=== PATIENT | female | born 1965 | race Caucasian/White ===

== ENCOUNTER 2016-09-21 21:20 | Emergency (ER) | payer MEDICARE ==
[~2016-09-21] VITALS: Ht 167.6 cm; Wt 62.0 kg
[2016-09-21 21:20] VITALS: BP 114/75; PULSE 72; RESP 16; TEMP 97.9; O2SAT 100
--- NOTE | 2016-09-21 21:47 | PD ---
HPI Chief Complaint: Back/ Neck Pain or Injury Time Seen by Provider: 21:36 Travel History International Travel<30 days: No Contact w/Intl Traveler<30days: No Traveled to known affect area: No History of Present Illness HPI 50 year-old female with a history of chronic back pain and several back surgeries presents to the emergency room via ambulance for evaluation of right- sided thoracic back pain since this morning. Patient states she was exiting the shower and upon turning/reaching for her towel, felt sharp severe pain in the right thoracic area. She denies lower extremity paresthesias, saddle anesthesia, or loss of bowel or bladder control. Patient has chronic upper extremity paresthesias from her neck surgery but states it is not worse than normal. Pain is worsened with any range of motion of the back and deep inspiration. It is constant dull ache with occasional sharp stabbing sensation. Severe, 10/10. She took her prescribed Lortab 10/325 and 6 muscle relaxers today without relief in symptoms. Patient reports she'll get a flare of back pain every 3 months but has never been this severe. She tried to " tough it out" but after being in pain all day, decided to come to the emergency room. When she attempted to get out of bed to drive herself, she was unable to so she called the ambulance. [facility] Social History Tobacco Use: No Allergies-Medications (Allergen,Severity, Reaction): Coded Allergies: Doxycycline (Verified Allergy, Intermediate, Skin Discoloration, 09/21/16) Reported Meds & Prescriptions Reported Meds & Active Scripts Active Prednisone 20 Mg Tab 40 Mg PO DAILY 5 Days Review of Systems Except as stated in HPI: all other systems reviewed are Neg Physical Exam Narrative GENERAL: Well-nourished, well-developed female in no acute distress. Afebrile. Ambulatory. SKIN: Warm and dry. HEAD: Normocephalic. EYES: No scleral icterus. No injection or drainage. NECK: Supple, trachea midline. No JVD or lymphadenopathy. MUSCULOSKELETAL: No cyanosis, or edema. BACK: No significant tenderness to palpation of the right thoracic musculature. No midline tenderness or obvious deformity. No CVA tenderness. Data Data Last Documented VS Vital Signs Date Time Temp Pulse Resp B/P Pulse Ox O2 Delivery O2 Flow Rate FiO2 09/21/16 21:20 97.9 72 16 114/75 100 Orders Dexamethasone Inj (Decadron Inj) (09/21/16 22:00) Ketorolac Inj (Toradol Inj) (09/21/16 22:00) [facility] Medical Decision Making Medical Screen Exam Complete: Yes Emergency Medical Condition: Yes Medical Record Reviewed: Yes Differential Diagnosis fracture versus spasm versus strain versus sprain Narrative Course 50-year-old female presents to the emergency room for evaluation of acute on chronic back pain. Patient has history of multiple back surgeries and bulging discs and gets flares every 3-4 months but has not had one this painful before. States pain significantly increased after twisting/reaching for a towel earlier today. No other injuries. No focal neurological deficits. No midline tenderness. No indication for emergent imaging at this time. Pain is localized to the tenderness to palpation of the right thoracic musculature but there is no significant tenderness to palpation. Patient's has already take Lortab 10 and prescribed muscle relaxers prior to arrival. Therefore she'll be given Toradol and Decadron in the emergency room. She reports moderate improvement in symptoms after medications. Discharged with prescription for prednisone and told to follow up with a primary care physician or return to the emergency room for worsening symptoms. She understands and agrees to plan. Diagnosis Primary Impression: Acute thoracic back pain Qualified Code: M54.6 - Acute right-sided thoracic back pain Referrals: Pain Management Primary Care Physician Patient Instructions: General Instructions, Thoracic Back Strain (ED) Additional Instructions: Rest and drink plenty of fluids. Take prescribed medications as directed, as needed for pain. Take ibuprofen with food as directed, as needed for pain. Apply ice to the affected area for 20 minutes at a time, as needed for pain and swelling. Follow-up with a primary care physician and pain management. Return to the emergency room for worsening symptoms. Scripts Prednisone 20 Mg Tab40 Mg PO DAILY 5 Days Ref 0 Prov:Daniel Burgos MD 09/21/16 Disposition: 01 DISCHARGE HOME Condition: Stable Mela Santana Sep 21, 2016 21:47 Condition: Stable Mela Santana Sep 21, 2016 21:47
[2016-09-21] MEDS ORDERED: DEXAMETHASONE SOD PHOS 4 MG/ML VIAL IM ONE (22:00)
[2016-09-21] MEDS ORDERED: KETOROLAC TROMETHAMINE 60 MG/2 ML (IM) VIAL IM ONE (22:00)
[2016-09-21] MEDS ORDERED: PRED20 PO (22:16)
== END 2016-09-21 22:43 | disposition home or self-care (01) ==
LOC: PHEFT 21:20
DX: M54.6 Pain in thoracic spine (principal)
CPT/HCPCS: 96372; 99283; J1100; J1885

== ENCOUNTER 2016-10-27 10:08 | Observation (INO) | payer MEDICARE ==
[~2016-10-27] VITALS: Ht 167.6 cm; Wt 67.9 kg
[~2016-10-27 10:08] MED LIST: PRED20 PO
[2016-10-27] MEDS ORDERED: SODIUM CHLOR 0.9% 1000 ML INJ 1,000 ML IV SCH (10:10)
[2016-10-27] MEDS ORDERED: ONDANSETRON HCL 4 MG/2 ML VIAL IVP ONE (10:15)
[2016-10-27] MEDS ORDERED: HYDROmorphone HCL PF 1 MG/ML VIAL IVS ONE (10:15)
[2016-10-27 10:20] VITALS: BP 146/88; PULSE 59; RESP 16; TEMP 97.6; O2SAT 100
[2016-10-27] MEDS: SODIUM CHLORIDE 0.9% FLUSH 5 ML FLUSH IVF PRN ×2 (10:28→11:35)
[2016-10-27] MEDS ORDERED: MACR100C2 PO (10:35)
[2016-10-27] MEDS ORDERED: HYDR-3533 PO (10:35)
[2016-10-27] MEDS ORDERED: ROBA750T PO (10:35)
--- NOTE | 2016-10-27 10:44 | PD ---
HPI Chief Complaint: Flank/Kidney Pain Time Seen by Provider: 10:10 Travel History International Travel<30 days: No Contact w/Intl Traveler<30days: No Traveled to known affect area: No History of Present Illness HPI This is a 51-year-old female who presents to the emergency department with sudden onset right lower quadrant abdominal pain, severe, constant, worse with movement, associated with multiple episodes of vomiting. Patient has never had pain like this before. It woke her up from sleep at 9 AM. She last had her menstrual cycle a week and a half ago. She denies any back pain. She denies any diarrhea or constipation. She's not had any vaginal discharge. Patient has a history of a cholecystectomy. She is on Lortab for chronic back pain. PFSH Past Medical History ?: Not LMP: 10/10/16 Tubal Ligation: Yes Past Surgical History Cholecystectomy: Yes Social History Alcohol Use: No Tobacco Use: No Substance Use: No Allergies-Medications (Allergen,Severity, Reaction): Coded Allergies: Doxycycline (Verified Allergy, Intermediate, Skin Discoloration, 10/27/16) Reported Meds & Prescriptions Reported Meds & Active Scripts Active Reported Macrobid (Nitrofurantoin Monoh/Nitrofur Macro) 100 Mg Cap 100 Mg PO BID Robaxin (Methocarbamol) 750 Mg Tab 750 Mg PO Q4H PRN Lortab (Hydrocodone-Acetaminophen) 5-325 Mg Tab 1 Tab PO Q4H PRN Review of Systems Except as stated in HPI: all other systems reviewed are Neg Physical Exam Narrative GENERAL: Unwell appearing, actively vomiting SKIN: Warm and dry. HEAD: Atraumatic. Normocephalic. EYES: Pupils equal and round. No injection or drainage. ENT: Moist mucous membranes NECK: Trachea midline. CARDIOVASCULAR: Regular rate and rhythm. No murmur appreciated. RESPIRATORY: Clear to auscultation. Breath sounds equal bilaterally. GASTROINTESTINAL: Abdomen soft, tender to palpation in the right lower quadrant with some guarding MUSCULOSKELETAL: No obvious deformities. NEUROLOGICAL: Awake and alert. No obvious cranial nerve deficits. Moving all extremities. PSYCHIATRIC: Appropriate mood and affect; insight and judgment normal. Data Data Last Documented VS Vital Signs Date Time Temp Pulse Resp B/P Pulse Ox O2 Delivery O2 Flow Rate FiO2 10/27/16 11:20 16 10/27/16 10:20 100 Room Air 10/27/16 10:20 97.6 59 146/88 Orders Complete Blood Count With Diff (10/27/16 10:10) Comprehensive Metabolic Panel (10/27/16 10:10) Lipase (10/27/16 10:10) Urinalysis - C+S If Indicated (10/27/16 10:10) Ct Abd/Pel W/O Iv Contrast (10/27/16 10:10) Iv Access Insert/Monitor (10/27/16 10:10) Ecg Monitoring (10/27/16 10:10) Oximetry (10/27/16 10:10) Ondansetron Inj (Zofran Inj) (10/27/16 10:15) Sodium Chlor 0.9% 1000 Ml Inj (Ns 1000 M (10/27/16 10:10) Sodium Chloride 0.9% Flush (Ns Flush) (10/27/16 10:15) Hydromorphone Pf Inj (Dilaudid Pf Inj) (10/27/16 10:15) Ed Urine Pregnancytest Poc (10/27/16 10:14) Hydromorphone Pf Inj (Dilaudid Pf Inj) (10/27/16 11:30) Admit Order (Ed Use Only) (10/27/16 ) Labs Laboratory Tests Test 10/27/16 10/27/16 10:25 10:40 Urine Collection Type CLEAN CATCH Urine Color YELLOW Urine Turbidity SLIGHT Urine pH 8.0 Urine Specific [place] 1.022 Urine Protein 30 mg/dL Urine Glucose (UA) NEG mg/dL Urine Ketones NEG mg/dL Urine Occult Blood TRACE Urine Nitrite NEG Urine Bilirubin NEG Urine Leukocyte Esterase NEG Urine RBC 4-9 /hpf Urine Squamous Epithelial 6-8 /hpf Cells Urine Amorphous Sediment LARGE Microscopic Urinalysis Comment CULT NOT INDICATED Urine Collection Time 10:25 White Blood Count 8.7 TH/MM3 Red Blood Count 4.43 MIL/MM3 Hemoglobin 13.5 GM/DL Hematocrit 41.3 % Mean Corpuscular Volume 93.2 FL Mean Corpuscular Hemoglobin 30.4 PG Mean Corpuscular Hemoglobin 32.6 % Concent Red Cell Distribution Width 12.9 % Platelet Count 334 TH/MM3 Mean Platelet Volume 7.7 FL Neutrophils (%) (Auto) 74.7 % Lymphocytes (%) (Auto) 12.8 % Monocytes (%) (Auto) 10.3 % Eosinophils (%) (Auto) 1.5 % Basophils (%) (Auto) 0.7 % Neutrophils # (Auto) 6.5 TH/MM3 Lymphocytes # (Auto) 1.1 TH/MM3 Monocytes # (Auto) 0.9 TH/MM3 Eosinophils # (Auto) 0.1 TH/MM3 Basophils # (Auto) 0.1 TH/MM3 CBC Comment DIFF FINAL Differential Comment Sodium Level 142 MEQ/L Potassium Level 3.8 MEQ/L Chloride Level 106 MEQ/L Carbon Dioxide Level 23.5 MEQ/L Anion Gap 13 MEQ/L Blood Urea Nitrogen 12 MG/DL Creatinine 0.93 MG/DL Estimat Glomerular Filtration 64 ML/MIN Rate Random Glucose 137 MG/DL Calcium Level 8.2 MG/DL Total Bilirubin 0.7 MG/DL Aspartate Amino Transf 15 U/L (AST/SGOT) Alanine Aminotransferase 31 U/L (ALT/SGPT) Alkaline Phosphatase 90 U/L Total Protein 7.1 GM/DL Albumin 3.6 GM/DL Lipase 108 U/L [facility] Medical Decision Making Medical Screen Exam Complete: Yes Emergency Medical Condition: Yes Interpretation(s) Afebrile, no tachycardia, hypertensive No leukocytosis Electrolytes are reassuring Lipase is normal Urinalysis: Some red blood cells CT: Severe hydronephrosis with forniceal rupture possible 5x2 oval calcification in the UVJ Differential Diagnosis Nephrolithiasis, ovarian cyst rupture, ovarian torsion, appendicitis Narrative Course This is a 51-year-old female who presents to the emergency department with severe right sided abdominal pain that started when she woke up from sleep this morning. She was placed on a monitor and an IV was established. She was given multiple doses of Dilaudid as well as Zofran and IV hydration. Labs were obtained which were reassuring. CT demonstrates severe hydronephrosis with forniceal rupture and possible 5 x 2 cm stone at the UVJ. I spoke to Dr. almazan who doesn't think the patient requires transfer to the main hospital given the distal location of the stone think she can be observed here [place] for pain control. Physician Communication Physician Communication Discussed with Dr. Hernandez and Dr. Duque Diagnosis Primary Impression: Hydronephrosis with urinary obstruction due to renal calculus Admitting Information Admitting Physician Requests: Admit Kari Fletcher MD Oct 27, 2016 10:44
[2016-10-27 10:49] LABS: BLOOD, URINE TRACE (NEG); GLUCOSE,URINE NEG (NEG); KETONE, URINE NEG (NEG); NITRITE,URINE NEG (NEG)
[2016-10-27 10:51] LABS: AUTOMATED NEUTROPHIL # 6.5 TH/MM3 (1.8-7.7); BASOPHIL # 0.1 TH/MM3 (0-0.2); BASOPHIL % 0.7 % (0.0-2.0); EOSINOPHIL # 0.1 TH/MM3 (0-0.4); EOSINOPHIL % 1.5 % (0.0-4.0); HEMATOCRIT 41.3 % (35.0-46.0); HEMO FLAGS DIFF FINAL; LYMPH % 12.8 % (9.0-44.0); LYMPHOCYTE # 1.1 TH/MM3 (1.0-4.8); MEAN CELL VOLUME 93.2 FL (80.0-100.0); MEAN CORPUSCULAR HEMOGLOBIN 30.4 PG (27.0-34.0); MEAN CORPUSCULAR HGB CONC 32.6 % (32.0-36.0); MONO % 10.3 % (0.0-8.0); NEUT % 74.7 % (16.0-70.0); PLATELET COUNT 334 TH/MM3 (150-450); RED BLOOD COUNT 4.43 MIL/MM3 (4.00-5.30); RED CELL DISTRIBUTION WIDTH 12.9 % (11.6-17.2); WHITE BLOOD COUNT 8.7 TH/MM3 (4.0-11.0)
[2016-10-27 10:54] LABS: METHOD OF COLLECTION CLEAN CATCH; URINE COLOR YELLOW (YELLW/STRAW)
[2016-10-27 10:55] LABS: COMMENT (UR) CULT NOT INDICATED; CULTURE IF INDICATED CULT NOT INDICATED
[2016-10-27 10:57] LABS: CHLORIDE 106 MEQ/L (98-107); POTASSIUM 3.8 MEQ/L (3.5-5.1); SODIUM (NA) 142 MEQ/L (136-145)
[2016-10-27 11:01] LABS: ANION GAP 13 MEQ/L (5-15); BICARBONATE 23.5 MEQ/L (21.0-32.0); BLOOD UREA NITROGEN 12 MG/DL (7-18)
[2016-10-27 11:04] LABS: ALT (GPT) 31 U/L (10-53); AST (GOT) 15 U/L (15-37); GLOMERULAR FILTRATION RATE 64 ML/MIN (>89)
[2016-10-27 11:05] LABS: TOTAL BILIRUBIN ADULT 0.7 MG/DL (0.2-1.0)
--- NOTE | 2016-10-27 11:06 | RADHPO ---
EXAM DATE/TIME: 10/27/2016 10:48 [facility] COMPARISON: No previous studies available for comparison. INDICATIONS : Severe right flank pain with nausea and vomiting. ORAL CONTRAST: No oral contrast ingested. RADIATION DOSE: 6.98 CTDIvol (mGy) MEDICAL HISTORY : None SURGICAL HISTORY : Cholecystectomy. Tubal ligation.Orthopedic surgery. ENCOUNTER: Initial ACUITY: 1 day PAIN SCALE: 10/10 LOCATION: Right flank TECHNIQUE: Volumetric scanning of the abdomen and pelvis was performed. Using automated exposure control and ad justment of the mA and/or kV according to patient size, radiation dose was kept as low as reasonably achievable to obtain optimal diagnostic quality images. FINDINGS: LOWER LUNGS: The visualized lower lungs are clear. LIVER: Homogeneous density without lesion. There is no dilation of the biliary tree. No calcified gallston es. SPLEEN: Normal size without lesion. PANCREAS: Within normal limits. KIDNEYS: There is severe hydronephrosis of the right kidney with a small amount of fluid adjacent to the renal collecting system suggesting forniceal rupture. No stones are identified within the right kidney or left kidney. It's difficult to trace the right ureter but there is a 5 x 2 mm oval calcification in t he expected location of the right UVJ. Could be a distal ureteral or intramural stone. There are numb er of other calcifications throughout the pelvis I suspect are phleboliths ADRENAL GLANDS: Within normal limits. VASCULAR: There is no aortic aneurysm. BOWEL/MESENTERY: The stomach, small bowel, and colon demonstrate no acute abnormality. There is no free intraperitone al air or fluid. ABDOMINAL WALL: Within normal limits. RETROPERITONEUM: There is no lymphadenopathy. BLADDER: No wall thickening or mass. REPRODUCTIVE: Within normal limits. INGUINAL: There is no lymphadenopathy or hernia. MUSCULOSKELETAL: Within normal limits for patient age. Status post lumbosacral fusion CONCLUSION: There is severe hydronephrosis of the right kidney with a small amount of fluid adjacent to the renal collecting system suggesting forniceal rupture. No stones are identified within the right kidney or left kidney. It's difficult to trace the right ureter but there is a 5 x 2 mm oval calcification in t he expected location of the right UVJ. Could be a distal ureteral or intramural stone. There are numb er of other calcifications throughout the pelvis I suspect are phleboliths Mason Nye MD on October 27, 2016 at 11:02 Board Certified Radiologist. This report was verified electronically.
[2016-10-27 11:07] LABS: ALKALINE PHOSPHATASE 90 U/L (45-117)
[2016-10-27 11:30] VITALS: BP 134/76; PULSE 64; RESP 16; O2SAT 100
[2016-10-27] MEDS ORDERED: HYDROmorphone HCL PF 1 MG/ML VIAL IV PUSH ONE (11:30)
[2016-10-27] MEDS ORDERED: SODIUM CHLORIDE 0.9% FLUSH 5 ML FLUSH FLUSH PRN (12:15)
[2016-10-27 12:40] VITALS: BP 141/84
[2016-10-27 12:54] VITALS: BP 151/91; PULSE 56; RESP 18; TEMP 98.3; O2SAT 100
[2016-10-27] MEDS ORDERED: ACETAMINOPHEN/HYDROcodone 325 MG/5 MG TAB PO PRN (13:45)
[2016-10-27] MEDS ORDERED: ACETAMINOPHEN/HYDROcodone 325 MG/7.5 MG TAB PO PRN (13:45)
[2016-10-27] MEDS: SODIUM CHLOR 0.9% 1000 ML INJ 1,000 ML IV SCH ×2 (13:52→22:33)
[2016-10-27] MEDS: HYDROmorphone HCL PF 1 MG/ML VIAL IV PRN ×3 (13:54→22:25)
--- NOTE | 2016-10-27 14:03 | HHI.HP ---
HPI Service [facility] Primary Care Physician No Primary Care Physician Admission Diagnosis hydronephrosis, kidney stone Diagnoses: Travel History International Travel<30 Days: No Contact w/Intl Traveler <30 Da: No Traveled to Known Affected Are: No History of Present Illness Patient noted to the emergency room and complains of flaky kidney pain on the right side. Over the last several days she's had frequency of urination and frequent pain went to urgent care and got some Macrobid prescribed for presumed UTI. Patient says she was not feeling any better and the right flank pain occurred at 9 AM awakening her from sleep. She did come to the emergency room for further evaluation and CT of abdomen pelvis was done which did show possible 5 x 2 has also significant process. The urinalysis was unremarkable for urinary tract infection however there is quite a bit of sediment. Patient has never had kidney stones and notes no history of kidney stones. She did have gallstones and has had a cholecystectomy. For these reasons the patient was admitted to the hospital. Her pain was 10 out of 10 and relieved with Dilaudid which we will continue Review of Systems Constitutional: DENIES: Diaphoretic episodes, Fatigue, Fever, Weight gain, Weight loss, Chills, Dizziness, Change in appetite, Night Sweats Endocrine: DENIES: Abnorml menstrual pattern, Heat/cold intolerance, Polydipsia , Polyuria, Polyphagia Eyes: DENIES: Blurred vision, Diplopia, Eye inflammation, Eye pain, Vision loss , Photosensitivity, Double Vision Respiratory: DENIES: Apneas, Cough, Snoring, Wheezing, Hemoptysis, Sputum production, Shortness of breath Cardiovascular: DENIES: Chest pain, Palpitations, Syncope, Dyspnea on Exertion , PND, Lower Extremity Edema, Orthopnea, Claudication Gastrointestinal: COMPLAINS OF: Abdominal pain, Nausea, Vomiting Genitourinary: DENIES: Abnormal vaginal bleeding, Dysmenorrhea, Dyspareunia, Sexual dysfunction, Urinary frequency, Urinary incontinence, Urgency, Hematuria , Dysuria, Nocturia, Vaginal discharge Musculoskeletal: DENIES: Joint pain, Muscle aches, Stiffness, Joint Swelling, Back pain, Neck pain Integumentary: DENIES: Abnormal pigmentation, Pruritus, Rash, Nail changes, Breast masses, Breast skin changes, Nipple discharge Hematologic/lymphatic: DENIES: Bruising, Lymphadenopathy Immunologic/allergic: DENIES: Eczema, Urticaria Neurologic: DENIES: Abnormal gait, Headache, Localized weakness, Paresthesias, Seizures, Speech Problems, Tremor, Poor Balance Psychiatric: DENIES: Anxiety, Confusion, Mood changes, Depression, Hallucinations, Agitation, Suicidal Ideation, Homicidal Ideation, Delusions Past Family Social History Past Medical History Chronic neck and back pain Past Surgical History Neck and lumbar surgery Cholecystectomy Reported Medications Reviewed in the medical record, recently started Macrobid Allergies: Coded Allergies: Doxycycline (Verified Allergy, Intermediate, Skin Discoloration, 10/27/16) Active Ordered Medications Reviewed in the medical record Family History Family history of kidney stones, there is a family history of hypertension Social History On disability No tobacco alcohol or illicit drug use Visit significant other Physical Exam Vital Signs Vital Signs Date Time Temp Pulse Resp B/P Pulse Ox O2 Delivery O2 Flow Rate FiO2 10/27/16 12:40 70 16 141/84 100 10/27/16 12:40 16 10/27/16 11:30 64 16 134/76 100 Room Air 10/27/16 11:20 16 10/27/16 10:25 16 10/27/16 10:20 16 100 Room Air 10/27/16 10:20 97.6 59 16 146/88 100 Physical Exam GENERAL: This is a well-nourished, well-developed patient, in no apparent distress. SKIN: No rashes, ecchymoses or lesions. Cool and dry. HEAD: Atraumatic. Normocephalic. No temporal or scalp tenderness. EYES: Pupils equal round and reactive. Extraocular motions intact. No scleral icterus. No injection or drainage. ENT: Nose without bleeding, purulent drainage or septal hematoma. Throat without erythema, tonsillar hypertrophy or exudate. Uvula midline. Airway patent. NECK: Trachea midline. No JVD or lymphadenopathy. Supple, nontender, no meningeal signs. CARDIOVASCULAR: Regular rate and rhythm without murmurs, gallops, or rubs. RESPIRATORY: Clear to auscultation. Breath sounds equal bilaterally. No wheezes , rales, or rhonchi. GASTROINTESTINAL: Abdomen soft, non-tender, nondistended. No hepato-splenomegaly , or palpable masses. No guarding. MUSCULOSKELETAL: Right sided flank and abdominal pain, Extremities without clubbing, cyanosis, or edema. No joint tenderness, effusion, or edema noted. No calf tenderness. Negative Homans sign bilaterally. NEUROLOGICAL: Awake and alert. Cranial nerves II through XII intact. Motor and sensory grossly within normal limits. Five out of 5 muscle strength in all muscle groups. Normal speech. Laboratory Laboratory Tests Test 10/27/16 10/27/16 10:25 10:40 Urine Collection Type CLEAN CATCH Urine Color YELLOW Urine Turbidity SLIGHT Urine pH 8.0 Urine Specific [place] 1.022 Urine Protein 30 Urine Glucose (UA) NEG Urine Ketones NEG Urine Occult Blood TRACE Urine Nitrite NEG Urine Bilirubin NEG Urine Leukocyte Esterase NEG Urine RBC 4-9 Urine Squamous Epithelial 6-8 Cells Urine Amorphous Sediment LARGE Microscopic Urinalysis Comment CULT NOT INDICATED Urine Collection Time 10:25 White Blood Count 8.7 Red Blood Count 4.43 Hemoglobin 13.5 Hematocrit 41.3 Mean Corpuscular Volume 93.2 Mean Corpuscular Hemoglobin 30.4 Mean Corpuscular Hemoglobin 32.6 Concent Red Cell Distribution Width 12.9 Platelet Count 334 Mean Platelet Volume 7.7 Neutrophils (%) (Auto) 74.7 Lymphocytes (%) (Auto) 12.8 Monocytes (%) (Auto) 10.3 Eosinophils (%) (Auto) 1.5 Basophils (%) (Auto) 0.7 Neutrophils # (Auto) 6.5 Lymphocytes # (Auto) 1.1 Monocytes # (Auto) 0.9 Eosinophils # (Auto) 0.1 Basophils # (Auto) 0.1 CBC Comment DIFF FINAL Differential Comment Sodium Level 142 Potassium Level 3.8 Chloride Level 106 Carbon Dioxide Level 23.5 Anion Gap 13 Blood Urea Nitrogen 12 Creatinine 0.93 Estimat Glomerular Filtration 64 Rate Random Glucose 137 Calcium Level 8.2 Total Bilirubin 0.7 Aspartate Amino Transf 15 (AST/SGOT) Alanine Aminotransferase 31 (ALT/SGPT) Alkaline Phosphatase 90 Total Protein 7.1 Albumin 3.6 Lipase 108 Result Diagram: 10/27/16 1040 10/27/16 1040 Imaging Last 24 hours Impressions Abdomen/Pelvis CT 10/27/16 1010 Signed Impressions: Service Date/Time: Thursday, October 27, 2016 10:48 - CONCLUSION: There is severe hydronephrosis of the right kidney with a small amount of fluid adjacent to the renal collecting system suggesting forniceal rupture. No stones are identified within the right kidney or left kidney. It's difficult to trace the right ureter but there is a 5 x 2 mm oval calcification in the expected location of the right UVJ. Could be a distal ureteral or intramural stone. There are number of other calcifications throughout the pelvis I suspect are phleboliths Mason Nye MD Assessment and Plan Problem List: (1) Hydronephrosis with urinary obstruction due to renal calculus ICD Code: N13.2 Status: Acute Plan: Continue with IV fluids, pain control with IV Dilaudid. Urology consultation pending. Continue antiemetics and supportive care. Empiric Rocephin Discussed Condition With Patient, Rohini Paulino M.D., MD Oct 27, 2016 14:03
[2016-10-27] MEDS ORDERED: cefTRIAXone INJ 1,000 MG in SODIUM CHLORIDE 0.9% INJ 100 ML IV SCH (15:00)
[2016-10-27 15:54] VITALS: BP 136/79; PULSE 68; RESP 18; TEMP 96.4; O2SAT 100
--- NOTE | 2016-10-27 15:58 | RADHPO ---
EXAM DATE/TIME: 10/27/2016 15:31 [place] Corrected on: November 10, 2016; corrected kidney measurement from 111.7 to 11.7 [facility] COMPARISON: CT ABDOMEN & PELVIS W/O CONTRAST, October 27, 2016, 10:48. INDICATIONS : Hydronephrosis. MEDICAL HISTORY : Severe hydronephrosis seen on CT (10/27/16). Abdominal pain. Kidney stones. Chronic back pain. SURGICAL HISTORY : Tubal ligation. Cholecystectomy. ENCOUNTER: Initial ACUITY: 1 day PAIN SCORE: 7/10 LOCATION: Bilateral flank MEASUREMENTS: RIGHT KIDNEY: 12.6 x 6.4 x 5.7 cm LEFT KIDNEY: 11.7 x 4.5 x 6.3 cm FINDINGS: RIGHT KIDNEY: There is some perinephric fluid suggesting forniceal rupture . Renal cortex is normal in thickness a nd echotexture. Mild hydronephrosis is noted. No residual stone, or mass. LEFT KIDNEY: Renal cortex is normal in thickness and echotexture. No hydronephrosis, stone, or mass. BLADDER: Within normal limits given the degree of distension. The right ureter remains prominent. CONCLUSION: Echogenic area dependent portion of the bladder measuring 8 x 4 mm I suspect the same stone seen prev iously on the CT scan. It has passed from the right ureter into the bladder. Mason Nye MD on October 27, 2016 at 15:55 Board Certified Radiologist. This report was verified electronically. DR Doshi on November 10, 2016 at 10:33 Board Certified Radiologist. This report was verified electronically.
[2016-10-27] MEDS ORDERED: ONDANSETRON HCL 4 MG/2 ML VIAL IV PUSH PRN (18:00)
[2016-10-27 20:00] VITALS: BP 114/72; PULSE 73; RESP 16; TEMP 98.6; O2SAT 100
[2016-10-27] MEDS: SODIUM CHLORIDE 0.9% FLUSH 5 ML FLUSH FLUSH SCH (20:33)
[2016-10-27] MEDS: KETOROLAC TROMETHAMINE 30 MG/ML (IVP) VIAL IV PUSH SCH (20:34)
[2016-10-28] VITALS: BP 103/58; PULSE 83; RESP 16; TEMP 98.9; O2SAT 98
[2016-10-28] MEDS: KETOROLAC TROMETHAMINE 30 MG/ML (IVP) VIAL IV PUSH SCH ×2 (02:17→09:13)
[2016-10-28] MEDS: HYDROmorphone HCL PF 1 MG/ML VIAL IV PRN (06:13)
[2016-10-28 08:00] VITALS: BP 107/62; PULSE 67; RESP 20; TEMP 96.6; O2SAT 95
[2016-10-28] MEDS: SODIUM CHLORIDE 0.9% FLUSH 5 ML FLUSH FLUSH SCH (09:00)
[2016-10-28] MEDS: SODIUM CHLOR 0.9% 1000 ML INJ 1,000 ML IV SCH (09:14)
[2016-10-28 10:13] VITALS: RESP 20
[2016-10-28] MEDS ORDERED: HYDR-3580 PO (10:39)
--- NOTE | 2016-10-28 10:40 | HHI.DCPOC ---
Discharge Care Plan Diagnosis: (1) Hydronephrosis with urinary obstruction due to renal calculus Goals to Promote Your Health * To prevent worsening of your condition and complications * To maintain your health at the optimal level Directions to Meet Your Goals Take your medications as prescribed Follow your dietary instruction Follow activity as directed Keep your appointments as scheduled Take your immunizations and boosters as scheduled If your symptoms worsen call your PCP, if no PCP go to Urgent Care Center or Emergency Room Smoking is Dangerous to Your Health. Avoid second hand smoke Call the 24-hour hour crisis hotline for domestic abuse at Rohini Hernandez MD Oct 28, 2016 10:40
--- NOTE | 2016-10-28 10:42 | HHI.DS ---
Discharge Summary Admission Date Oct 27, 2016 at 11:24 Discharge Date: Oct 28, 2016 Admitting Diagnosis hydronephrosis, kidney stone (1) Hydronephrosis with urinary obstruction due to renal calculus ICD Code: N13.2 Procedures none Brief History - From Admission Patient noted to the emergency room and complains of flaky kidney pain on the right side. Over the last several days she's had frequency of urination and frequent pain went to urgent care and got some Macrobid prescribed for presumed UTI. Patient says she was not feeling any better and the right flank pain occurred at 9 AM awakening her from sleep. She did come to the emergency room for further evaluation and CT of abdomen pelvis was done which did show possible 5 x 2 has also significant process. The urinalysis was unremarkable for urinary tract infection however there is quite a bit of sediment. Patient has never had kidney stones and notes no history of kidney stones. She did have gallstones and has had a cholecystectomy. For these reasons the patient was admitted to the hospital. Her pain was 10 out of 10 and relieved with Dilaudid which we will continue CBC/BMP: 10/27/16 1040 10/27/16 1040 Significant Findings Laboratory Tests Test 10/27/16 10/27/16 10:25 10:40 Urine Protein 30 mg/dL (NEG-TRACE) Urine Occult Blood TRACE (NEG) Urine RBC 4-9 /hpf (0-3) Urine Squamous Epithelial 6-8 /hpf (0-5) Cells Neutrophils (%) (Auto) 74.7 % (16.0-70.0) Monocytes (%) (Auto) 10.3 % (0.0-8.0) Estimat Glomerular Filtration 64 ML/MIN (>89) Rate Random Glucose 137 MG/DL (74-106) Calcium Level 8.2 MG/DL (8.5-10.1) Imaging Last Impressions Abdomen/Pelvis CT 10/27/16 1010 Signed Impressions: Service Date/Time: Thursday, October 27, 2016 10:48 - CONCLUSION: There is severe hydronephrosis of the right kidney with a small amount of fluid adjacent to the renal collecting system suggesting forniceal rupture. No stones are identified within the right kidney or left kidney. It's difficult to trace the right ureter but there is a 5 x 2 mm oval calcification in the expected location of the right UVJ. Could be a distal ureteral or intramural stone. There are number of other calcifications throughout the pelvis I suspect are phleboliths Mason Nye MD Renal Ultrasound 10/27/16 0000 Signed Impressions: Service Date/Time: Thursday, October 27, 2016 15:31 - CONCLUSION: Echogenic area dependent portion of the bladder measuring 8 x 4 mm I suspect the same stone seen previously on the CT scan. It has passed from the right ureter into the bladder. Mason Nye MD PE at Discharge GENERAL: This is a well-nourished, well-developed patient, in no apparent distress. CARDIOVASCULAR: Regular rate and rhythm without murmurs, gallops, or rubs. RESPIRATORY: Clear to auscultation. Breath sounds equal bilaterally. No wheezes , rales, or rhonchi. GASTROINTESTINAL: Abdomen soft, non-tender, nondistended. Normal active bowel sounds MUSCULOSKELETAL: Extremities without clubbing, cyanosis, or edema. NEURO: Alert & Oriented x4 to person, place, time, situation. Moves all ext x4 Pt update on day of discharge Patient seen and evaluated in follow-up for kidney stone with hydronephrosis. Patient has passed stone. Patient will need discharge plans discussed with patient. Hospital Course Patient is a 51-year-old female did have some right sided abdominal pain with evidence of a stone. She did pass a stone. Patient was given empiric antibiotics and had patient education regarding nephrolithiasis. Pain was improved. She did well with discharged home Pt Condition on Discharge: Good Discharge Disposition: Discharge Home Discharge Time: > 30 minutes Discharge Instructions DIET: Follow Instructions for: As Tolerated, No Restrictions Activities you can perform: Regular-No Restrictions Follow up Referrals: Urology - 2 Weeks with Reynaldo Duque MD New Medications: Hydrocodone-Acetaminophen (Hydrocodone-Acetaminophen) 7.5-325 mg Tab 1 TAB PO Q4H PRN PAIN SCALE 6 TO 10 #10 TAB Continued Medications: Hydrocodone-Acetaminophen (Lortab) 5-325 Mg Tab 1 TAB PO Q4H PRN PAIN SCALE 1 TO 10 Ref 0 TAB Methocarbamol (Robaxin) 750 Mg Tab 750 MG PO Q4H PRN MUSCLE SPASM Ref 0 TAB Nitrofurantoin Monohydrate Macrocrystals (Macrobid) 100 Mg Cap 100 MG PO BID Infection Ref 0 Rohini Rebollar MD Oct 28, 2016 10:42
== END 2016-10-28 12:45 | disposition home or self-care (01) ==
LOC: PHED 10:08 → INTOOBSV 11:24 → PHEDA 11:24 → PH3A 13:07
PROVIDERS: ADMIT Hospitalist; ATTEND Hospitalist
DX: N13.2 Hydronephrosis with renal and ureteral calculous obstruction (principal); R11.10 Vomiting, unspecified; G89.29 Other chronic pain
CPT/HCPCS: 74176; 76775; 80053; 81001; 83690; 84703; 85025; 96361; 96374; 96375; 99285; G0378; J0696; J1170; J1885; J2405; J7030